=== PATIENT | male | born 1960 | race African-American/Black ===

== ENCOUNTER 2020-12-31 15:05 | Inpatient (IN) ==
[2020-12-31 18:38] LABS: Basophils % 0.4 % (0.0-0.8); Eosinophils % 0.1 % (0.00-10.9); Hematocrit 32.7 VOL% (42.0-52.0); Hemoglobin 10.5 GM/DL (14.0-18.0); Immature Granulocytes % 1.9 %; Lymphocytes # 0.6 10*3/uL (1.4-4.0); Lymphocytes % 6.1 % (21.2-54.2); Mean Corpuscular HGB Conc 32.1 GM/DL (32-36); Mean Corpuscular Volume 103.5 FL (87-102); Mean Platelet Volume 11.6 FL (9.6-12.0); Monocytes % 3.5 % (1.7-12.7); Platelet Count 180 T/CUMM (130-400); Red Blood Count 3.16 MC/CUMM (3.8-5.5); Red Cell Distribution Width 16.8 % (9.3-17.3); White Blood Count 10.4 T/CUMM (4-12)
[2020-12-31] MEDS ORDERED: DEXTROSE 50% 25 GM/50 ML VIAL IV PRN ×2 (19:02→19:07)
[2020-12-31] MEDS ORDERED: ONDANSETRON 4 MG/2 ML VIAL IV PRN (19:02)
[2020-12-31] MEDS ORDERED: GLUCAGON 1 MG VIAL IM PRN (19:02)
[2020-12-31 19:10] LABS: Albumin 2.2 G/DL (3.4-5.0); Bilirubin,Total 0.5 MG/DL (0.2-1.0); Calcium 8.5 MG/DL (8.5-10.1); Osmolality,Calculated 285.1 MOS/KG (273-304); Thyroid Stimulating Hormone 27.2 uIU/ml (0.358-3.74); Total Protein 7.3 G/DL (6.4-8.2)
[2020-12-31] MEDS ORDERED: POTASSIUM CHLORIDE 20 MEQ TABLET PO ONE (19:22)
[2020-12-31] MEDS: INSULIN REGULAR 100 UNIT/ML SUBCUT SCH (20:57)
[2020-12-31] MEDS: ENOXAPARIN 40 MG/0.4 ML SYRINGE SUBCUT SCH (21:00)
[2020-12-31] MEDS: PHENYTOIN ER 100 MG CAPSULE PO SCH (21:04)
[2020-12-31] MEDS: LEVOFLOXACIN INJ 500 MG/100 ML PREMIX IV SCH (21:04)
[2020-12-31 22:33] LABS: Bilirubin,Urine Negative (Negative); Blood, Urine Negative (Negative); Glucose,Urine (UA) Negative (Negative); Hyaline Casts,Urine 90 /LPF (0-3); Ketones,Urine Negative (Negative); Mucus,Urine Occasional /LPF (Occasional); Nitrite,Urine Negative (Negative); Protein,Urine Negative; RBC,Urine 1 /HPF (0-4); Squamous Epithelial Cell,Urine Occasional /HPF (0-10); Urine Appearance CLEAR (Clear); Urine Color Amber (Yellow); Urine Specific Gravity 1.014 (1.001-1.035)
[2020-12-31 22:35] LABS: Barbiturates Screen,Urine Negative (Negative); Benzodiazepines Screen,Urine Negative (Negative); Cannabinoid Screen,Urine Negative (Negative); Opiate Screen,Urine Negative (Negative); Phencyclidine Screen,Urine Negative (Negative)
[2021-01-01 05:54] LABS: Basophils % 0.1 % (0.0-0.8); Hematocrit 29.1 VOL% (42.0-52.0); Hemoglobin 9.4 GM/DL (14.0-18.0); Lymphocytes # 0.9 10*3/uL (1.4-4.0); Mean Corpuscular HGB Conc 32.3 GM/DL (32-36); Mean Corpuscular Volume 102.1 FL (87-102); Mean Platelet Volume 11.3 FL (9.6-12.0); Monocytes % 4.4 % (1.7-12.7); NRBC # 0.02 10*3/uL; Neutrophils % 84.5 % (38.7-73.9); Platelet Count 155 T/CUMM (130-400); Red Blood Count 2.85 MC/CUMM (3.8-5.5); Red Cell Distribution Width 16.6 % (9.3-17.3)
[2021-01-01 06:01] LABS: INR 1.2
[2021-01-01 06:28] LABS: Albumin 1.9 G/DL (3.4-5.0); Bilirubin,Total 0.7 MG/DL (0.2-1.0); Calcium 8.4 MG/DL (8.5-10.1); Osmolality,Calculated 287.8 MOS/KG (273-304); Potassium 3.2 MMOL/L (3.5-5.1); Total Protein 6.6 G/DL (6.4-8.2)
[2021-01-01] MEDS ORDERED: LEVOTHYROXINE 25 MCG TABLET PO SCH (06:30)
[2021-01-01 06:33] LABS: Folate 4.34 NG/ML (5.38-24.0); Vitamin B12 1674 PG/ML (211-911)
[2021-01-01 06:41] LABS: % Iron Saturation 35.4 % (18-50); Ferritin 403.3 ng/ml (26-388)
[2021-01-01 07:06] LABS: Hepatitis B Core IgM Quant 0.25 Index; Hepatitis B Surface Ag Quant < 0.10 Index; Hepatitis B Surface Ag Result Non-Reactive (NonReactive); Hepatitis C Virus Ab Quant 0.06 Index; Hepatitis C Virus Ab Result Non-Reactive (NonReactive)
[2021-01-01 07:10] LABS: Sedimentation Rate-Westergren 85 MM/HR (0-20)
[2021-01-01] MEDS: LEVOFLOXACIN INJ 500 MG/100 ML PREMIX IV SCH (08:40)
[2021-01-01] MEDS: INSULIN REGULAR 100 UNIT/ML SUBCUT SCH ×4 (08:40→21:29)
[2021-01-01] MEDS: POTASSIUM CHLORIDE 20 MEQ TABLET PO SCH (08:40)
[2021-01-01 09:23] LABS: Hemoglobin A1 (Alkaline) 97.3 % (96.5-98.5); Hemoglobin A2 (Alkaline) 2.7 % (1.5-3.5)
[2021-01-01 16:31] LABS: Neutrophils,Peritoneal Fluid 32 %; RBC,Peritoneal Fluid 1032 T/CUMM
[2021-01-01] MEDS: PHENYTOIN ER 100 MG CAPSULE PO SCH (21:13)
[2021-01-01] MEDS: ENOXAPARIN 40 MG/0.4 ML SYRINGE SUBCUT SCH (21:13)
[2021-01-01] MEDS: FOLIC ACID 1 MG TABLET PO SCH (21:13)
[2021-01-02 05:19] LABS: Basophils % 0.1 % (0.0-0.8); Hematocrit 28.9 VOL% (42.0-52.0); Immature Granulocytes % 2.4 %; Immature Granulocytes Absolute 0.27 #; Lymphocytes # 2.3 10*3/uL (1.4-4.0); Mean Corpuscular HGB Conc 31.1 GM/DL (32-36); Mean Corpuscular Volume 102.8 FL (87-102); Mean Platelet Volume 11.2 FL (9.6-12.0); Monocytes % 9.5 % (1.7-12.7); NRBC # 0.02 10*3/uL; Platelet Count 145 T/CUMM (130-400); Red Blood Count 2.81 MC/CUMM (3.8-5.5); Red Cell Distribution Width 16.9 % (9.3-17.3); White Blood Count 11.4 T/CUMM (4-12)
[2021-01-02 05:43] LABS: Hypochromasia 1+; Lymphocytes 22 % (20-55); Microcytosis 1+; Platelet Estimate Adequate; Segmented Neutrophils 76 % (50-85); Total Cells Counted 100
[2021-01-02 05:45] LABS: Albumin 1.9 G/DL (3.4-5.0); Bilirubin,Direct 0.38 MG/DL (0.0-0.20); Bilirubin,Indirect 0.6 MG/DL (0.0-1.0); Osmolality,Calculated 288.7 MOS/KG (273-304); Total Protein 5.6 G/DL (6.4-8.2)
[2021-01-02] MEDS: LEVOTHYROXINE 50 MCG TABLET PO SCH (05:57)
[2021-01-02 05:58] LABS: Albumin 1.8 G/DL (3.4-5.0); Bilirubin,Total 0.8 MG/DL (0.2-1.0); Osmolality,Calculated 286.8 MOS/KG (273-304); Potassium 2.9 MMOL/L (3.5-5.1); Total Protein 5.8 G/DL (6.4-8.2)
[2021-01-02] MEDS: INSULIN REGULAR 100 UNIT/ML SUBCUT SCH ×4 (07:04→21:24)
[2021-01-02] MEDS: FOLIC ACID 1 MG TABLET PO SCH ×2 (08:10→22:10)
[2021-01-02] MEDS: LEVOFLOXACIN INJ 500 MG/100 ML PREMIX IV SCH (08:10)
[2021-01-02] MEDS: POTASSIUM CHLORIDE 20 MEQ TABLET PO SCH (08:10)
[2021-01-02] MEDS ORDERED: POTASSIUM CHLORIDE 20 MEQ TABLET PO ONE (12:31)
[2021-01-02] MEDS ORDERED: MAGNESIUM OXIDE 400 MG TABLET PO ONE (12:32)
[2021-01-02] MEDS: PHENYTOIN ER 100 MG CAPSULE PO SCH (21:14)
[2021-01-02] MEDS: ENOXAPARIN 40 MG/0.4 ML SYRINGE SUBCUT SCH (21:16)
[2021-01-03 05:56] LABS: Basophils % 0.3 % (0.0-0.8); Eosinophils # 0.1 10*3/uL (0.0-0.87); Eosinophils % 0.9 % (0.00-10.9); Hematocrit 30.8 VOL% (42.0-52.0); Immature Granulocytes % 2.1 %; Immature Granulocytes Absolute 0.22 #; Lymphocytes # 2.5 10*3/uL (1.4-4.0); Lymphocytes % 23.9 % (21.2-54.2); Mean Corpuscular HGB Conc 32.5 GM/DL (32-36); Mean Platelet Volume 11.4 FL (9.6-12.0); Monocytes % 9.8 % (1.7-12.7); Platelet Count 130 T/CUMM (130-400); Red Blood Count 3.02 MC/CUMM (3.8-5.5); Red Cell Distribution Width 17.1 % (9.3-17.3); White Blood Count 10.3 T/CUMM (4-12)
[2021-01-03 06:06] LABS: Albumin 1.7 G/DL (3.4-5.0); Bilirubin,Total 0.7 MG/DL (0.2-1.0); Calcium 8.3 MG/DL (8.5-10.1); Osmolality,Calculated 285.8 MOS/KG (273-304); Potassium 3.2 MMOL/L (3.5-5.1); Total Protein 5.7 G/DL (6.4-8.2)
[2021-01-03 06:32] LABS: Platelet Estimate Adequate
[2021-01-03 06:33] LABS: Anisocytosis 1+; Hypochromasia Slight; Macrocytosis 2+; Target Cells Few
[2021-01-03] MEDS: LEVOTHYROXINE 50 MCG TABLET PO SCH (07:19)
[2021-01-03] MEDS: INSULIN REGULAR 100 UNIT/ML SUBCUT SCH (08:29)
[2021-01-03] MEDS: FOLIC ACID 1 MG TABLET PO SCH (08:29)
[2021-01-03] MEDS: POTASSIUM CHLORIDE 20 MEQ TABLET PO SCH (08:30)
[2021-01-03 12:04] VITALS: BP 103/67
[2021-01-03] MEDS ORDERED: POTASSIUM CHLORIDE 20 MEQ TABLET PO ONE (12:40)
== END 2021-01-03 13:27 | disposition home or self-care (01) | DRG 280 ==
LOC: SUATTDRO 16:58 → N.5E 16:58
PROVIDERS: ADMIT Internal Medicine; ATTEND Internal Medicine